=== PATIENT | female | born 1955 | race Caucasian/White ===

== ENCOUNTER → 2017-04-23 | Outpatient (CLI) | payer OTHER ==
[~2017-04-23] MED LIST: DOXY40CP PO; IOHEXOL 300 MG/ML 100ML VIAL. IV ONE; SIMV5TAB5 PO
--- NOTE | 2017-04-23 09:23 | KCIC ---
CT CHEST W/CONTRAST Indication: Hilar lymphadenopathy, smoker for 30+ years, productive cough, wheezing Technique: PostcontrastCT imaging was performed of the[chest], multiplanar reconstruction images submitted. One or more of the following individualized dose reduction techniques were utilized for this examination: 1. Automated exposure control 2. Adjustment of the mA and/or kV according to patient size 3. Use of iterative reconstruction technique. Contrast: 95 cc Omnipaque 300 Comparison: 06/28/2015 Findings: There is no new suspicious pulmonary nodularity, likely small focus of atelectasis along the lateral margin of the left major fissure. Previously seen mediastinal nodes are stable, not considered significantly enlarged with the largest pretracheal node up to 0.9 short axis dimension. There is no new pericardial or pleural fluid, pneumothorax, infiltrate. There is coronary calcification. Major airways are patent. There is likely hepatic steatosis. There are again bilateral breast implants. IMPRESSION: 1. Findings are stable. There are stable mediastinal nodes, not considered significantly enlarged based on short axis dimension. 2. There is coronary calcification. Electronically signed by: Roque Moncada MD (04/23/2017 9:19 AM) [facility]
--- NOTE | 2017-04-23 13:15 | KCIC ---
Bilateral digital screening mammograms: Reason for examination: Routine screening. Comparison is made to previous studies dated 04/20/2016 and 04/20/2015. Interpretation is made with the benefit of CAD. The skin and nipples show no abnormalities. No abnormal lymph nodes are seen. Bilateral breast implants remain present. The breast parenchyma is predominantly fatty. (Breast density: Category A.) There are no dominant masses, suspicious calcifications or architectural distortions. Impression: No evidence of malignancy. Recommend routine screening. BI-RADS Category 1: Negative. "Our facility is accredited by the [employer] Mammography [employer]." This patient's information has been entered into a reminder system for the patient to be notified with the results of her examination and a target date for the next mammogram. Electronically signed by: Hilda Howell MD (04/23/2017 1:12 PM) [id number]
== END | disposition home or self-care (01) ==
LOC: KCIC CT 08:08
PROVIDERS: ATTEND Family Medicine
DX: Z12.31 Encounter for screening mammogram for malignant neoplasm of breast (principal); I25.10 Atherosclerotic heart disease of native coronary artery without angina pectoris; R59.9 Enlarged lymph nodes, unspecified
CPT/HCPCS: 71260; G0202; Q9967; 77067

== ENCOUNTER → 2018-04-25 | Outpatient (CLI) | payer OTHER ==
--- NOTE | 2018-04-25 12:08 | KCIC ---
EXAM: Bilateral screening mammogram. HISTORY: 62-year-old female presents for screening mammography. TECHNIQUE: Full-field digital craniocaudal and mediolateral oblique standard and breast implant displaced views of both breasts are obtained for evaluation. Computer aided detection with Bplats[employer] software version 9.3 was applied. COMPARISON: 02/21/2017 BREAST PARENCHYMAL DENSITY: Level B - Scattered fibroglandular densities. FINDINGS: There is no new suspicious mass, microcalcification or region of architectural distortion. There are unremarkable breast implants. IMPRESSION: BI-RADS Category 2: Benign finding(s). RECOMMENDATION: Annual mammography is recommended. If your mammogram demonstrates that you have dense breast tissue, which could hide abnormalities, and if you have other risk factors for breast cancer that have been identified, you might benefit from supplemental screening tests that may be suggested by your ordering physician. Dense breast tissue, in and of itself, is a relatively common condition. This information is not provided to cause undue concern, but rather to raise your awareness and to promote discussion with your physician regarding the presence of other risk factors, in addition to dense breast tissue. A report of your mammography results will be sent to you and your physician. You should contact your physician if you have any questions or concerns regarding this report. Mammography is a sensitive method for finding small breast cancers, but it does not detect them all and is not a substitute for careful clinical examination. A negative mammogram does not negate a clinically suspicious finding and should not result in delay in biopsying a clinically suspicious abnormality. PQRS compliance statement - Patient information was entered into a reminder system with a target due date for the next mammogram. "Our facility is accredited by the [employer] Mammography [employer]." Electronically signed by: Autumn Asif MD (04/25/2018 12:04 PM) [id number]
--- NOTE | 2018-04-25 15:46 | KCIC ---
CT CHEST W/CONTRAST Indication: Hilar adenopathy. Exposure: One or more of the following individualized dose reduction techniques were utilized for this examination: 1. Automated exposure control 2. Adjustment of the mA and/or kV according to patient size 3. Use of iterative reconstruction technique. Comparison: April 23, 2017 Contrast: Intravenous contrast given. Thoracic aorta: Mildly calcified. No evidence of aneurysm. No evidence of dissection. Great vessel origins:Patent Pulmonary arteries:Main central arteries appear patent. Thyroid gland: Partially seen, small hypodense nodule in the right thyroid measures 9 mm. Lymph nodes: Small mediastinal lymph nodes are identified. Largest pretracheal node measures 8 mm short axis, no significant change. No significant hilar or axillary lymph node enlargement. Heart: Coronary artery calcifications. Trace pericardial fluid. Esophagus: Unremarkable Pleural spaces: No significant effusion Lungs: No dominant airspace consolidation or large mass. Trachea and central airways: Patent Spine: Mild degenerative spondylosis. Bones: No destructive process. Upper abdomen: Slices through the upper abdomen are limited due to the technique. Liver hypodensity, may indicate steatosis. External Soft Tissue: Bilateral breast implants are again identified. There is evidence of intracapsular rupture of both implants. Impression: 1. Prominent mediastinal lymph nodes are stable. 2. Trace pericardial fluid. 3. Breast implants with findings suggestive of intracapsular rupture. Electronically signed by: Fabián Fountain MD (04/25/2018 3:42 PM) [facility]
== END | disposition home or self-care (01) ==
LOC: KCIC CT 09:16
PROVIDERS: ATTEND Family Medicine
DX: Z12.31 Encounter for screening mammogram for malignant neoplasm of breast (principal); M47.894 Other spondylosis, thoracic region; R59.0 Localized enlarged lymph nodes
CPT/HCPCS: 71260; 77067; Q9967

== ENCOUNTER → 2019-04-14 | Outpatient (CLI) | payer OTHER ==
[~2019-04-14] MED LIST changes: +SIMV5TAB14 PO; -SIMV5TAB5 PO
--- NOTE | 2019-04-15 13:41 | KCIC ---
CT CHEST W/CONTRAST History: Hilar lymphadenopathy. Productive cough. Smoker. Technique: CT of the chest was performed with contrast. Coronal and sagittal reconstructions were performed. Exposure: One or more of the following individualized dose reduction techniques were utilized for this examination: 1. Automated exposure control 2. Adjustment of the mA and/or kV according to patient size 3. Use of iterative reconstruction technique. Comparison: April 25, 2018. Findings: Chest: Mildly prominent mediastinal lymph nodes, unchanged. Pretracheal lymph node measures 1.6 x 0.8 cm, unchanged. No hilar lymphadenopathy or axillary lymphadenopathy. Bilateral breast implants with unchanged appearance. Coronary artery calcification. Tiny pericardial effusion, unchanged. No consolidation or pleural effusion. Upper abdomen: Hepatic steatosis. Tiny right renal lesion, unchanged, likely cyst although too small to further characterize. Bones: Chronic sternal fracture, unchanged. Impression: 1. Moderate prominent mediastinal lymph nodes, unchanged. 2. Trace pericardial effusion, unchanged. 3. Hepatic steatosis. Electronically signed by: Avni Arguelles DO (04/15/2019 1:38 PM) [facility]
== END | disposition home or self-care (01) ==
LOC: KCIC CT 08:17
PROVIDERS: ATTEND Family Medicine
DX: I31.3 Pericardial effusion (noninflammatory) (principal); K76.0 Fatty (change of) liver, not elsewhere classified; I25.10 Atherosclerotic heart disease of native coronary artery without angina pectoris; N28.9 Disorder of kidney and ureter, unspecified; Z98.82 Breast implant status
CPT/HCPCS: 71260; Q9967

== ENCOUNTER → 2019-04-28 | Outpatient (CLI) | payer OTHER ==
[~2019-04-28] MED LIST changes: -IOHEXOL 300 MG/ML 100ML VIAL. IV ONE
--- NOTE | 2019-05-08 18:03 | KCIC ---
BILATERAL SCREENING MAMMOGRAM, 2-D and 3-D History: Routine screening. Comparison: Bilateral mammogram 04/25/2018. Technique: Routine bilateral digital mammogram views. MLO and CC digital tomosynthesis (3D) images obtained with implants displaced. Radiologist reviewed these images on dedicated workstation. Findings: Breast Tissue Density B : There are scattered areas of fibroglandular density. There are stable bilateral retropectoral saline implants. There are no dominant masses, suspicious microcalcifications, or architectural distortion. IMPRESSION: No mammographic evidence of malignancy. Recommend routine screening. BI-RADS category 1: Negative. The images were reviewed with computer-aided detection. Patient information is entered into reminder system with a target due date for the next screening mammogram. Mammography is the most sensitive method for finding small breast cancers, but it does not detect them all and is not a substitute for careful clinical examination. A negative mammogram does not negate a clinically suspicious finding and should not result in delay in biopsying a clinically suspicious abnormality. "Our facility is accredited by the [employer] Mammography Program." Electronically signed by: Abelardo Banerjee MD (05/08/2019 6:00 PM) [facility]
== END | disposition home or self-care (01) ==
LOC: KCIC MAMMO 08:46
PROVIDERS: ATTEND Family Medicine
DX: Z12.31 Encounter for screening mammogram for malignant neoplasm of breast (principal); Z98.82 Breast implant status
CPT/HCPCS: 77063; 77067

== ENCOUNTER → 2020-05-02 | Outpatient (CLI) | payer OTHER ==
--- NOTE | 2020-05-02 11:06 | KCIC ---
EXAM: Bilateral digital screening mammogram with tomosynthesis. HISTORY: 64-year-old female presents for screening mammography. TECHNIQUE: Full-field digital craniocaudal and mediolateral oblique 2D and 3D tomosynthesis images of both breasts are obtained for evaluation. Computer aided detection was applied. COMPARISON: 04/28/2019 BREAST PARENCHYMAL DENSITY: Level B - Scattered fibroglandular densities. FINDINGS: There is no new suspicious mass, microcalcification or region of architectural distortion. IMPRESSION: BI-RADS Category 2: Benign finding(s). RECOMMENDATION: Annual mammography is recommended. If your mammogram demonstrates that you have dense breast tissue, which could hide abnormalities, and if you have other risk factors for breast cancer that have been identified, you might benefit from s upplemental screening tests that may be suggested by your ordering physician. Dense breast tissue, i n and of itself, is a relatively common condition. This information is not provided to cause undue c oncern, but rather to raise your awareness and to promote discussion with your physician regarding th e presence of other risk factors, in addition to dense breast tissue. A report of your mammography re sults will be sent to you and your physician. You should contact your physician if you have any ques tions or concerns regarding this report. Mammography is a sensitive method for finding small breast cancers, but it does not detect them all a nd is not a substitute for careful clinical examination. A negative mammogram does not negate a clin ically suspicious finding and should not result in delay in biopsying a clinically suspicious abnorma lity. PQRS compliance statement - Patient information was entered into a reminder system with a target due date for the next mammogram. "Our facility is accredited by the [employer] Mammography Program." Electronically signed by: Autumn Asif MD (05/02/2020 11:03 AM) [id number]
== END ==
LOC: KCIC CT 09:50
PROVIDERS: ATTEND Family Medicine
DX: Z12.31 Encounter for screening mammogram for malignant neoplasm of breast (principal)
CPT/HCPCS: 77063; 77067

== ENCOUNTER → 2020-05-11 | Outpatient (CLI) | payer OTHER ==
[~2020-05-11] MED LIST changes: +IOHEXOL 300 MG/ML 100ML VIAL. IV ONE
--- NOTE | 2020-05-11 13:31 | KCIC ---
EXAM: Chest CT with intravenous contrast. HISTORY: Hilar lymphadenopathy. TECHNIQUE: Computed tomographic images of the chest were obtained following the administration of int ravenous contrast. Multiplanar reformatting was performed. *One or more of the following individualized dose reduction techniques were utilized for this examina tion: 1. Automated exposure control. 2. Adjustment of the mA and/or kV according to patient size. 3. Use of iterative reconstruction technique. COMPARISON: 04/14/2019. FINDINGS: The heart is normal in size. There is calcified atherosclerotic plaque involving the aorta and coronary arteries. There is a standard aortic arch branching pattern. There are stable prominent mediastinal and hilar lymph nodes. These are not pathologically enlarged. There are implanted breast prostheses. There is no pneumothorax or pleural effusion. There is medial right middle lobe and lingu lar linear atelectasis or scarring. There is no infiltrate or suspicious pulmonary nodule. There is h epatic steatosis. There is no suspicious osseous lesion. There is a chronic sternal fracture. IMPRESSION: 1. No acute thoracic finding. 2. Stable prominent mediastinal and hilar lymph nodes. These are not pathologically enlarged. Electronically signed by: Autumn Asif MD (05/11/2020 1:29 PM) [id number]
== END ==
LOC: KCIC CT 12:19
PROVIDERS: ATTEND Family Medicine
DX: R05 Cough (principal); R06.02 Shortness of breath; I70.0 Atherosclerosis of aorta; I25.10 Atherosclerotic heart disease of native coronary artery without angina pectoris; S22.20XA Unspecified fracture of sternum, initial encounter for closed fracture; X58.XXXA Exposure to other specified factors, initial encounter; Y93.89 Activity, other specified; Y92.89 Other specified places as the place of occurrence of the external cause; Y99.8 Other external cause status; Z87.891 Personal history of nicotine dependence
CPT/HCPCS: 71260; Q9967

== ENCOUNTER → 2020-05-18 | Outpatient (CLI) | payer OTHER ==
[~2020-05-18] MED LIST changes: -IOHEXOL 300 MG/ML 100ML VIAL. IV ONE
--- NOTE | 2020-05-19 02:50 | RAD ---
EXAM: ULTRASOUND PELVIS INDICATION: Reason: PELVIC PAIN / Spl. Instructions: / History: . Last menstrual period was . COMPARISON: None available. TECHNIQUE: Transabdominal sonography was performed. FINDINGS: The uterus measures 6.9 x 4.8 x 3.1 cm. The endometrium measures 1 cm. There is no focal myometrial abnormality The right ovary measures 2.5 x 2.2 x 1.1 cm. The left ovary measures 2.4 x 1.9 x 1.2 cm. Flow seen t o both ovaries. No definite adnexal mass. There is no free fluid. IMPRESSION: Essentially normal sonographic survey of the uterus and adnexa. Electronically signed by: Greg Reno MD (05/19/2020 2:47 AM) [facility]
== END ==
LOC: US 12:41
PROVIDERS: ATTEND Family Medicine
DX: R10.2 Pelvic and perineal pain (principal)
CPT/HCPCS: 76856

== ENCOUNTER → 2021-07-24 | Outpatient (CLI) | payer OTHER ==
[~2021-07-24] MED LIST changes: +CONTRAST GIVEN. MC PRN; +IOHEXOL 300 MG/ML 100ML VIAL. IV ONE
--- NOTE | 2021-07-24 09:26 | KCIC ---
PQRS Compliance Statement: One or more of the following individualized dose reduction techniques were utilized for this examinat ion: 1. Automated exposure control 2. Adjustment of the mA and/or kV according to patient size 3. Use of iterative reconstruction technique Exam performed: CT chest with contrast. HISTORY: Hilar adenopathy. DATE OF SERVICE: 07/24/2021. COMPARISON: Several prior CT chest dating back to 2015 and including the most recent CT chest from 05/11/2020. TECHNIQUE: Contiguous helical acquisitions are obtained are obtained through the chest during intrave nous administration of 95 cc of Omnipaque 300. Sagittal and coronal reformatted images are obtained a nd reviewed. FINDINGS: Structures at the thoracic inlet including both lobes of the thyroid gland appear normal. The neck an d intrathoracic great vessels appear normal in course and caliber. Diffuse atheromatous aortic and co ronary calcification is seen. Mildly prominent mediastinal and hilar lymph nodes are redemonstrated. These does not fill focal criteria for pathological enlargement and are stable since prior study. Hea rt size is normal without pericardial effusion. Interrogation of lungs demonstrates no focal infiltrates or nodules. There is no pleural effusion or pneumothorax. There are spondylotic changes throughout the thoracic spine. Limited evaluation of the upper abdominal structures appears normal. IMPRESSION: 1. No acute abnormality seen in the CT chest. 2. Mildly prominent mediastinal and hilar lymph nodes are seen which have remained unchanged since s everal prior CT chest dating back to 2015 . The stability over a period of 6 years suggests benign e tiology. No further follow up is necessary. Electronically signed by: Lamar Del Valle MD (07/24/2021 9:23 AM) [facility]
== END ==
LOC: KCIC CT 08:11
PROVIDERS: ATTEND Family Medicine
DX: R59.0 Localized enlarged lymph nodes (principal); I25.10 Atherosclerotic heart disease of native coronary artery without angina pectoris; I70.0 Atherosclerosis of aorta
CPT/HCPCS: 71260; Q9967

== ENCOUNTER → 2021-07-24 | Outpatient (CLI) | payer OTHER ==
[~2021-07-24] MED LIST changes: -CONTRAST GIVEN. MC PRN; -IOHEXOL 300 MG/ML 100ML VIAL. IV ONE
--- NOTE | 2021-07-24 10:24 | KCIC ---
Bilateral digital screening mammograms with 3-D tomosynthesis: Reason for examination: Routine screening. Comparison is made to previous studies dated back to 04/23/2017. Bilateral mammograms in CC and oblique projections were obtained with 2-D imaging and 3-D tomosynthes is imaging on a Siemens Inspiration unit and reviewed on the workstation. Interpretation was made wit h the benefit of CAD. The skin and nipples show no abnormalities. No abnormal axillary lymph nodes are seen. The breast par enchyma shows scattered fatty and fibroglandular density. (Breast density: Category B.) There is a sm all cluster of microcalcifications seen posterior medially on the left cc view. These are not seen on the additional implant displacement view or oblique views. There are no other dominant masses, suspi cious calcifications or architectural distortion. Impression: New clustered microcalcifications seen posterior medially in the left breast on cc view only. Recomme nd further evaluation with coned compression magnification views. BI-RAD Category 0: Incomplete. Needs additional imaging evaluation. "Our facility is accredited by the [employer] Mammography Program." This patient's information has been entered into a reminder system for the patient to be notified wit h the results of her examination and a target date for the next mammogram. Electronically signed by: Hilda Howell MD (07/24/2021 10:22 AM) [email or web address]
== END ==
LOC: KCIC MAMMO 08:17
PROVIDERS: ATTEND Family Medicine
DX: Z12.31 Encounter for screening mammogram for malignant neoplasm of breast (principal)
CPT/HCPCS: 77063; 77067

== ENCOUNTER → 2021-08-10 | Outpatient (CLI) | payer OTHER ==
--- NOTE | 2021-08-10 11:18 | KCIC ---
Left breast diagnostic digital mammograms: Reason for examination: Calcifications on screening mammogram. Cone compression magnification views were obtained of the right breast in CC, lateral and tangential views. A marker was placed on the skin surface at the site of a scar in the upper inner quadrant. The calcifications appear to be associated with the scar on the skin surface. No definite calcificati ons are seen within the breast parenchyma. IMPRESSION: Calcifications seen mammographically appear to be within a scar on the skin surface. Recommend 6 month follow-up with mammograms after consultation with dermatology. BI-RADS Category 3: Probably Benign. "Our facility is accredited by the [employer] Mammography Program." This patient's information has been entered into a reminder system for the patient to be notified wit h the results of her examination and a target date for the next mammogram. Electronically signed by: Hilda Howell MD (08/10/2021 11:15 AM) [email or web address]
== END ==
LOC: KCIC MAMMO 08:00
PROVIDERS: ATTEND Family Medicine
DX: R92.1 Mammographic calcification found on diagnostic imaging of breast (principal)
CPT/HCPCS: 77065